=== PATIENT | female | born 1955 | race American Indian/Alaskan Native ===

== ENCOUNTER 2016-10-05 15:51 | Emergency (ER) | payer MEDICARE ==
[2016-10-05] MEDS ORDERED: NACL 0.9% 1000 ML 1,000 ML IV ONE (17:25)
--- NOTE | 2016-10-05 17:29 | Emergency Department Report ---
HPI - General Chief Complaint: Syncope Time Seen by Provider: 10/05/16 17:23 - HPI HPI: This is a 60-year-old Afro-Irish female presents the emergency department, originally to drop somewhat all soft to be seen, but the patient became suddenly weak and almost passed out while standing in front of registration. Patient says that she's been having a 2 day history of some nausea and vomiting , a one-day history of some diarrhea, and some generalized weakness. She denies any chest pain, shortness of breath, back pain, vision change but does have an associated generalized headache. The patient says that her son reason he came into town and had the flu worsen to have a viral syndrome and she may of caught it. She has a past medical history of hypertension, and coronary artery disease with a previous double bypass. No recent travel. ED Past Medical Hx - Past Medical History Hx Hypertension: Yes Hx Heart Attack/AMI: Yes Additional medical history: double bypass - Surgical History Additional Surgical History: double bypass - Social History Smoking Status: Current Every Day Smoker Substance Use Type: Alcohol - Medications Home Medications: Home Medications Medication Instructions Recorded Confirmed Last Taken Type Ciprofloxacin HCl [Ciprofloxacin 500 mg PO Q12H #28 tab 01/31/16 Unknown Rx TAB] traMADol [Ultram 50 MG tab] 50 mg PO Q6HR PRN #20 tablet 01/31/16 Unknown Rx ED Review of Systems ROS: Stated complaint: DIZZY / PASSED OUT Other details as noted in HPI Comment: All other systems reviewed and negative Constitutional: weakness. denies: chills, fever Eyes: denies: eye pain, eye discharge, vision change ENT: denies: ear pain, throat pain Respiratory: denies: cough, shortness of breath, wheezing Cardiovascular: denies: chest pain, palpitations Gastrointestinal: nausea, vomiting, diarrhea Genitourinary: denies: urgency, dysuria, discharge Musculoskeletal: denies: back pain, joint swelling, arthralgia Skin: denies: rash, lesions Neurological: headache. denies: numbness, paresthesias Physical Exam - Physical Exam Vital Signs: Vital Signs 10/05/16 16:28 Temperature 97.5 F L Pulse Rate 77 Respiratory 20 Rate Blood Pressure 70/48 O2 Sat by Pulse 96 Oximetry Physical Exam: GENERAL: The patient is well-developed well-nourished. HEENT: Normocephalic. Atraumatic. Extraocular motions are intact. Patient has moist mucous membranes. Pupils equal reactive to light bilaterally. NECK: Supple. Trachea is midline. CHEST/LUNGS: Clear to auscultation. There is no respiratory distress noted. HEART/CARDIOVASCULAR: Regular. There is no tachycardia. There is no gallop rub or murmur. ABDOMEN: Abdomen is soft, nontender. Patient has normal bowel sounds. There is no abdominal distention. SKIN: There is no rash. There is no edema. There is no diaphoresis. NEURO: The patient is awake, alert, and oriented. The patient is cooperative. The patient has no focal neurologic deficits. The patient has normal speech. Cranial nerves II through XII grossly intact. No pronator drift. No dysmetria. MUSCULOSKELETAL: There is no tenderness or deformity. There is no limitation range of motion. There is no evidence of acute injury. Cap refill less than 2 seconds. ED Course Vital Signs 10/05/16 16:28 Temperature 97.5 F L Pulse Rate 77 Respiratory 20 Rate Blood Pressure 70/48 O2 Sat by Pulse 96 Oximetry ED Medical Decision Making - Lab Data Result diagrams: 10/05/16 17:45 10/05/16 17:45 - EKG Data -: EKG Interpreted by Nd EKG shows normal: sinus rhythm (with sinus arrythmia), axis, intervals, QRS complexes (LVH with repolarization), ST-T waves Rate: normal - EKG Data When compared to previous EKG there are: previous EKG unavailable Interpretation: other (sinus rhythm with sinus arrhythmia, LVH with repolarization) - Radiology Data Radiology results: image reviewed interpreted by me: Chest x-ray did not show any acute process. Heart is normal shape and size. No effusions. No pneumothorax. No signs of pneumonia seen. - Medical Decision Making This is a 60-year-old female presents the emergency department feeling as if she is going to pass out after 2 days of nausea and vomiting. Patient was found to have orthostatic hypotension. She presented with a systolic of about 70 but immediately upon laying down her systolic blood pressure was 140. We did actually orthostatic vital signs and she was once again positive. Patient' s EKG does not show any signs of ST elevation [place] or dysrhythmia. Patient's labs show some renal sufficiency with a GFR of 48, possible hypothyroidism with a TSH of 8, and some mild dehydration with 20 ketones. Patient was given IV fluid resuscitation. She was reevaluated multiple times for multiple hours and says she is feeling much better. She is currently symptomatically and says she is better baseline. Towards the end of her evaluation she was once again positive for orthostatics but this time the systolic blood pressure was still at about 115 and the patient did not have any dizziness. She is feeling better and asking for discharge home. She has a primary care doctor follow-up. She' ll return to the ER with any worsening of her symptoms or any acute distress. - Differential Diagnosis orthostatic hypotension, vasovagal, dysrhythmia, hypothyroidism, hypoglycem Critical Care Time: No Critical care attestation.: If time is entered above; I have spent that time in minutes in the direct care of this critically ill patient, excluding procedure time. ED Disposition Clinical Impression: Orthostatic hypotension, Renal insufficiency, Hyperglycemia Hypothyroid Qualifiers: Hypothyroidism type: unspecified Qualified Code(s): E03.9 - Hypothyroidism, unspecified Disposition: DISCHARGED TO HOME OR SELFCARE Is pt being admited?: No Condition: Stable Instructions: Hypothyroidism (ED), Hypotension (ED), Dizziness (ED), Impaired Kidney Function (ED) Additional Instructions: Please follow-up with your primary care doctor in the next few days. Return to the emergency department with any return of her symptoms or any acute distress. Increase her oral rehydration. Referrals: PRIMARY MD ASYA [Primary Care Provider] - 3-5 Days Time of Disposition: 20:53
[2016-10-05 17:49] LABS: Bacteria,Urine 1+ /HPF (Negative); Bilirubin,Urine NEG (Negative); Blood,Urine SM (Negative); Ketones,Urine 20 mg/dL (Negative); Leukocyte Esterase,Urine NEG (Negative); Mucus,Urine 1+ /HPF; Nitrite,Urine NEG (Negative)
[2016-10-05] MEDS ORDERED: NACL 0.9% 500 ML 500 ML IV ONE ×2 (17:52→19:20)
[2016-10-05 18:03] LABS: Basophils % (Auto) 0.7 % (0.0-1.8); Hematocrit 47.9 % (30.3-42.9); Hemoglobin 16.2 gm/dl (10.1-14.3); Mean Corpuscular HGB Conc 34 % (30-34); Mean Corpuscular Hemoglobin 34 pg (28-32); Mean Corpuscular Volume 100 fl (79-97); Platelet Count 147 K/mm3 (140-440); Red Blood Count 4.81 M/mm3 (3.65-5.03); Red Cell Distribution Width 13.7 % (13.2-15.2); White Blood Count 4.3 K/mm3 (4.5-11.0)
[2016-10-05 18:24] LABS: BUN/Creatinine Ratio 11.42; Calcium 8.9 mg/dL (8.4-10.2); Potassium 3.9 mmol/L (3.6-5.0)
[2016-10-05 21:39] VITALS: BP 139/87
--- NOTE | 2016-10-07 11:12 | XRay Report ---
AP CHEST: HISTORY: Dizziness, syncope Previous CABG changes are suspected. Normal heart size and pulmonary vascularity. The aorta is mildly ectatic but well-defined. The lungs are clear. Normal bony thorax. IMPRESSION: No acute cardiopulmonary process.
== END 2016-10-05 22:02 | disposition home or self-care (01) ==
LOC: ED 15:51
DX: I95.1 Orthostatic hypotension (principal); E03.9 Hypothyroidism, unspecified; N28.9 Disorder of kidney and ureter, unspecified; R73.9 Hyperglycemia, unspecified; I10 Essential (primary) hypertension; I25.2 Old myocardial infarction; F17.200 Nicotine dependence, unspecified, uncomplicated; Z79.1 Long term (current) use of non-steroidal anti-inflammatories (NSAID); Z79.2 Long term (current) use of antibiotics; Z88.6 Allergy status to analgesic agent
CPT/HCPCS: 36415; 71010; 80048; 81001; 84443; 84484; 85025; 87400; 93005; 93010; 96360; 96361; 99284; J7030; J7040

== ENCOUNTER 2019-07-15 11:23 | Emergency (ER) | payer MEDICARE ==
--- NOTE | 2019-07-15 12:30 | Event Note ---
ED Screening Note Date of service: 07/15/19 Time: 12:26 ED Screening Note: This is a 63 y.o. F. that presents to the ER with chills, cough, and weakness since last night. Current smoker Last night she took josé luis-seltzer plus and airborne This initial assessment/diagnostic orders/clinical plan/treatment(s) is/are subject to change based on patients health status, clinical progression and re- assessment by fellow clinical providers in the ED. Further treatment and workup at subsequent clinical providers discretion. Patient/guardian urged not to elope from the ED as their condition may be serious if not clinically assessed and managed. Initial orders include: CXR Labs
[2019-07-15 12:59] LABS: Hematocrit 46.5 % (30.3-42.9); Hemoglobin 16.1 gm/dl (10.1-14.3); Mean Corpuscular HGB Conc 35 % (30-34); Mean Corpuscular Volume 101 fl (79-97); Platelet Count 253 K/mm3 (140-440); Red Cell Distribution Width 13.5 % (13.2-15.2)
--- NOTE | 2019-07-15 13:00 | XRay Report ---
CHEST 2 VIEWS INDICATION / CLINICAL INFORMATION: cough. COMPARISON: 10/15/16 FINDINGS: SUPPORT DEVICES: None. HEART / MEDIASTINUM: Heart is normal size. Median sternotomy wires and CABG clips are unchanged. LUNGS / PLEURA: No significant pulmonary or pleural abnormality. No pneumothorax. ADDITIONAL FINDINGS: No significant additional findings. IMPRESSION: 1. No acute findings. No change. Signer Name: Adelia Negro MD Signed: 07/15/2019 12:56 PM Workstation Name: [id number]
[2019-07-15 13:31] LABS: Alanine Aminotransferase 7 units/L (7-56); Albumin 4.2 g/dL (3.9-5); BUN/Creatinine Ratio 13; Blood Urea Nitrogen 12 mg/dL (7-17); Calcium 9.5 mg/dL (8.4-10.2); Hemolysis Index 7
[2019-07-15] MEDS ORDERED: predniSONE 20 MG TAB PO ONE (13:48)
[2019-07-15] MEDS ORDERED: ACETAMINOPHEN 325 MG TAB PO ONE (13:49)
--- NOTE | 2019-07-15 13:58 | Emergency Department Report ---
Minor Respiratory - HPI Chief Complaint: Weakness Stated Complaint: WEAK/FEVER/SOB Time Seen by Provider: 07/15/19 12:25 Minor Respiratory: Yes Able to Tolerate Fluids, Yes Cough, Yes Sick Contacts (grandchildren), Yes Fever (low grade), No Rhinorrhea, No Sore Throat, No Ear Pain, No Hemoptysis, No Chest Pain, No Shortness of Breath Other History: Is a 63-year-old female who present to the ED complaining of body aches,coughing intermittent x last night, chills ED Review of Systems ROS: Stated complaint: WEAK/FEVER/SOB Other details as noted in HPI Comment: All other systems reviewed and negative ED Past Medical Hx - Past Medical History Hx Hypertension: Yes Hx Heart Attack/AMI: Yes Additional medical history: double bypass - Surgical History Additional Surgical History: double bypass - Social History Smoking Status: Current Every Day Smoker Substance Use Type: None - Medications Home Medications: Home Medications Medication Instructions Recorded Confirmed Last Taken Type Ciprofloxacin HCl [Ciprofloxacin 500 mg PO Q12H #28 tab 01/31/16 Unknown Rx TAB] traMADoL [Ultram 50 MG tab] 50 mg PO Q6HR PRN #20 tablet 01/31/16 Unknown Rx Benzonatate [Tessalon Perles] 100 mg PO Q8HR #20 capsule 07/15/19 Unknown Rx Ibuprofen [Motrin] 800 mg PO Q8HR #30 tablet 07/15/19 Unknown Rx Minor Respiratory Exam - Exam General: Vital signs noted. No distress. Alert and acting appropriately. HEENT: Yes Moist Mucous Membranes, No Pharyngeal Erythema, No Pharyngeal Exudates, No Rhinorrhea, No Conjuctival Injection, No Frontal Tenderness, No Maxillary Tenderness Ear: Neither TM Bulge, Neither TM Erythema, Neither EAC Pain, Neither EAC Discharge Neck: Yes Supple, No Adenopathy Lungs: Yes Good Air Exchange, No Wheezes, No Ronchi, No Stridor, No Cough, No Labored Respirations, No Retractions, No Use of Accessory Muscles, No Other Abnormal Lung Sounds Heart: Yes Regular, No Murmur Abdomen: Yes Normal Bowel Sounds, No Tenderness, No Peritoneal Signs Skin: No Rash, No Edema Neurologic: Alert and oriented, no deficits. Musculoskeletal: Unremarkable. ED Course Vital Signs 07/15/19 12:26 Temperature 99 F Pulse Rate 109 H Respiratory 20 Rate Blood Pressure 176/94 O2 Sat by Pulse 94 Oximetry ED Medical Decision Making - Lab Data Result diagrams: 07/15/19 12:45 07/15/19 12:45 Laboratory Last Values WBC 8.3 K/mm3 (4.5-11.0) 07/15/19 12:45 RBC 4.60 M/mm3 (3.65-5.03) 07/15/19 12:45 Hgb 16.1 gm/dl (10.1-14.3) H 07/15/19 12:45 Hct 46.5 % (30.3-42.9) H 07/15/19 12:45 MCV 101 fl (79-97) H 07/15/19 12:45 MCH 35 pg (28-32) H 07/15/19 12:45 MCHC 35 % (30-34) H 07/15/19 12:45 RDW 13.5 % (13.2-15.2) 07/15/19 12:45 Plt Count 253 K/mm3 (140-440) 07/15/19 12:45 Sodium 139 mmol/L (137-145) 07/15/19 12:45 Potassium 3.9 mmol/L (3.6-5.0) 07/15/19 12:45 Chloride 99.7 mmol/L (98-107) 07/15/19 12:45 Carbon Dioxide 22 mmol/L (22-30) 07/15/19 12:45 Anion Gap 21 mmol/L 07/15/19 12:45 BUN 12 mg/dL (7-17) 07/15/19 12:45 Creatinine 0.9 mg/dL (0.7-1.2) 07/15/19 12:45 Estimated GFR > 60 ml/min 07/15/19 12:45 BUN/Creatinine Ratio 13 % 07/15/19 12:45 Glucose 142 mg/dL (65-100) H 07/15/19 12:45 Calcium 9.5 mg/dL (8.4-10.2) 07/15/19 12:45 Total Bilirubin 0.30 mg/dL (0.1-1.2) 07/15/19 12:45 AST 14 units/L (5-40) 07/15/19 12:45 ALT 7 units/L (7-56) 07/15/19 12:45 Alkaline Phosphatase 63 units/L (35-129) 07/15/19 12:45 Total Protein 7.9 g/dL (6.3-8.2) 07/15/19 12:45 Albumin 4.2 g/dL (3.9-5) 07/15/19 12:45 Albumin/Globulin Ratio 1.1 % 07/15/19 12:45 - Radiology Data Radiology results: report reviewed, image reviewed CHEST 2 VIEWS INDICATION / CLINICAL INFORMATION: cough. COMPARISON: 10/15/16 FINDINGS: SUPPORT DEVICES: None. HEART / MEDIASTINUM: Heart is normal size. Median sternotomy wires and CABG c lips are unchanged. LUNGS / PLEURA: No significant pulmonary or pleural abnormality. No pneumothora x. ADDITIONAL FINDINGS: No significant additional findings. IMPRESSION: 1. No acute findings. No change. Signer Name: Adelia Negro MD Signed: 07/15/2019 12:56 PM Workstation Name: [id number] Transcribed By: DT Dictated By: Jamison Negro MD Electronically Authenticated By: Jamison Negro MD Signed Date/Time: 07/15/19 1256 - Medical Decision Making 63-year-old male presents with flulike symptoms. Fever resolved no fever during the ED stay. Discussed with patient symptomatic relief with [id number] medications. Discussed continue Tylenol or Motrin as needed for fever and pain. Discussed increase fluids and diet intake. Discussed rest much needed. Discussed daily vitamin C for immune booster. Discussed follow-up with the primary care physician in 3-5 days. Patient verbally states she understands and will comply the following instructions and follow-up Vital signs stable. Patient is in no acute distress Critical care attestation.: If time is entered above; I have spent that time in minutes in the direct care of this critically ill patient, excluding procedure time. ED Disposition Clinical Impression: Viral syndrome Disposition: DC-01 TO HOME OR SELFCARE Is pt being admited?: No Does the pt Need Aspirin: No Condition: Stable Instructions: Viral Syndrome (ED) Additional Instructions: Make sure to follow up with the primary care physician as discussed. Take all your medications as you've been prescribed. If you have any worsening symptoms or develop new symptoms please return to ED immediately. Prescriptions: Ibuprofen [Motrin] 800 mg PO Q8HR #30 tablet Benzonatate [Tessalon Perles] 100 mg PO Q8HR #20 capsule Referrals: ADRY ALDRIDGE MD [Primary Care Provider] - 3-5 Days Forms: Accompanied Note, Work/School Release Form(ED) Time of Disposition: 14:26
[2019-07-15 14:53] VITALS: BP 164/88
== END 2019-07-15 14:51 | disposition home or self-care (01) ==
LOC: ED 11:23
DX: B34.9 Viral infection, unspecified (principal); I21.9 Acute myocardial infarction, unspecified; F17.200 Nicotine dependence, unspecified, uncomplicated; Z98.890 Other specified postprocedural states; Z79.1 Long term (current) use of non-steroidal anti-inflammatories (NSAID); Z79.899 Other long term (current) drug therapy; Z88.4 Allergy status to anesthetic agent
CPT/HCPCS: 36415; 71046; 80053; 85027; 99284; J7512